=== PATIENT | female | born 1940 | race Two or more races ===

== ENCOUNTER → 2024-05-12 | Outpatient (CLI) | payer MEDICARE, OTHER, SELFPAY ==
--- NOTE | 2024-05-12 13:15 | XR_ITS ---
Examination: Screening digital mammography, bilateral Computer aided detection 3-D breast Tomosynthesis, bilateral Date and time of exam: May 12, 2024 1318 hours Compared to mammograms dating to November 05, 2010 Indication: Screening Technique: Nonmagnified MLO, CC views of the breasts to been obtained, reconstructed from 3-D Tomosynthesis images. R2 computer aided detection program utilized for evaluation of suspicious masses and/or abnormal calcifications. 3-D Tomosynthesis images obtained. Findings: Scattered areas of fibroglandular density. Benign calcifications. No interval suspicious masses Impression: BI-RADS category II: Benign Findings. Recommend 1 year follow-up mammogram.
== END | disposition home or self-care (01) ==
LOC: CDIM 12:58
PROVIDERS: Referring Provider Nurse Practitioner Family; Visit Provider Nurse Practitioner Family
DX: Z12.31 Encounter for screening mammogram for malignant neoplasm of breast (principal); R92.323 Mammographic fibroglandular density, bilateral breasts; R92.1 Mammographic calcification found on diagnostic imaging of breast
CPT/HCPCS: 77063; 77067

== ENCOUNTER → 2024-07-05 | Outpatient (CLI) | payer MEDICARE, OTHER, SELFPAY ==
--- NOTE | 2024-07-05 13:22 | XR_ITS ---
Examination: Right knee 2 views Technique one AP lateral right knee 2 views Exam date and time: July 05, 2024 1352 hours Comparison January 22, 2012 INDICATIONS: Right knee pain beginning one month ago. FINDINGS: Severe osteopenia Moderate narrowing medial joint space Mild osteoarthritis patellofemoral joint No fracture IMPRESSION: Moderate narrowing medial joint space
== END | disposition home or self-care (01) ==
LOC: CDIM 13:12
PROVIDERS: PCP Nurse Practitioner Family; Referring Provider Nurse Practitioner Family; Visit Provider Nurse Practitioner Family
DX: M25.861 Other specified joint disorders, right knee (principal)
CPT/HCPCS: 73560

== ENCOUNTER 2025-04-10 10:27 | Emergency (ER) | payer MEDICARE, OTHER, SELFPAY ==
[2025-04-10 10:39] VITALS: BP 156/78; PULSE 83; RESP 18; TEMP 36.7; O2SAT 100; BMI 19.5
--- NOTE | 2025-04-10 10:52 | PD.EDRME ---
Rapid Medical Screening Exam RME Arrival date/time: 04/10/25 10:27 84-year-old female with a history of hypertension, hyperlipidemia, type 2 diabetes, presents to the emergency room with a chief complaint of generalized weakness and bodyaches x 2 days I have greeted and performed a focused initial assessment of this patient. A comprehensive ED assessment and evaluation of the patient, analysis of all test results, and completion of the medical decision making process will be conducted by additional ED providers. Chief Complaint: General Adult/Misc Complain Time Seen by Provider: 04/10/25 10:39 Vital signs: Vital Signs Temperature 98.1 F 04/10/25 10:39 Pulse Rate 83 04/10/25 10:39 Respiratory Rate 18 04/10/25 10:39 Blood Pressure 156/78 H 04/10/25 10:39 Pulse Oximetry (%) 100 04/10/25 10:39 Oxygen Delivery Method Room Air 04/10/25 10:39 Vital signs reviewed by provider: Yes Exam: Strong and regular rhythm Clear bilateral lung sounds Clinical Impression: Anemia/hypoglycemia/weakness
[2025-04-10 11:43] LABS: Collection Type, Urine Clean Catch; RBC,Urine 0 /hpf (0-3)
[2025-04-10 11:49] LABS: Beta Hydroxybutyrate 0.4 mmol/L (<0.6)
[2025-04-10 11:52] LABS: Basophils # (Auto) 0.1 Thou/mm3 (0.0-0.2); Basophils % (Auto) 1 % (0-2.5); Eosinophils # (Auto) 0.3 Thou/mm3 (0.0-0.5); Eosinophils % (Auto) 3 % (0-10); Hematocrit 35.3 % (36.0-46.0); Hemoglobin 11.7 g/dL (12.0-16.0); Immature Granulocytes Auto 0.03 Thou/mm3 (0.00-0.00); Lymphocytes # (Auto) 2.6 Thou/mm3 (1.0-4.8); Lymphocytes % (Auto) 29 % (10-50); Mean Corpuscular HGB Conc 33.1 g/dl (31.0-37.0); Mean Corpuscular Hemoglobin 30.1 pg (25.0-35.0); Mean Corpuscular Volume 91 fL (80-100); Monocytes # (Auto) 0.4 Thou/mm3 (0.0-0.8); Monocytes % (Auto) 5 % (0-12); Neutrophils # (Auto) 5.5 Thou/mm3 (1.8-7.7); Neutrophils % (Auto) 62 % (37-80); Nucleated Red Blood Cell # 0.00 Thou/mm3 (0.00-0.00); Nucleated Red Blood Cell % 0 /100 WBC (0); Platelet Count 273 Thou/mm3 (140-440); RDW Standard Deviation 43.3 fL (36.4-46.3); Red Blood Count 3.89 Miln/mm3 (4.00-5.20); White Blood Count 8.9 Thou/mm3 (3.6-11.0)
[2025-04-10 11:58] LABS: Bacteria,Urine Rare; Bilirubin,Urine Negative (Negative); Blood,Urine Negative (Negative); Clarity,Urine Turbid (Clear/Hazy); Color,Urine Lt-Yellow (Lt Yel-Yel); Glucose, Urine 4+ (Negative); Ketones,Urine Negative (Negative); Leukocyte Esterase,Urine Positive (Negative); Nitrite,Urine Negative (Negative); PH,Urine 6.0 (5.0-7.0); Protein,Urine Trace (Neg - Trace); Specific Gravity,Urine 1.021 (1.001-1.035); Squamous Epithelial Cell,Urine 2 /hpf (0-5); Urobilinogen,Urine Negative mg/dL (0.0-1.0); WBC,Urine 107 /hpf (0-5)
[2025-04-10 12:04] LABS: Alanine Aminotransferase 43 U/L (10-49); Albumin, Serum 4.5 gm/dL (3.4-4.8); Albumin/Globulin Ratio 1.2 (1.2-2.2); Alkaline Phosphatase 136 U/L (46-116); Anion Gap 10 (7-16); Aspartate Amino Transferase 42 U/L (0-34); BUN/Creatinine Ratio 14 Ratio (12-20); Bilirubin,Total 0.6 mg/dL (0.3-1.2); Blood Urea Nitrogen 17 mg/dL (9-23); Calcium 10.4 mg/dL (8.3-10.6); Calcium (Corrected) 10.4 mg/dL (8.5-10.1); Carbon Dioxide 30.4 mMol/L (20.0-31.0); Chloride 102 mMol/L (98-107); Creatinine (Component) 1.2 mg/dL (0.6-1.3); Estimated Creatinine Clearance 25.9 mL/min (>60); Globulin 3.9 gm/dL (2.3-3.5); Glucose 176 mg/dL (74-106); Lipase 43 U/L (12-53); Osmolality,Calculated 288 (275-295); Potassium 3.7 mMol/L (3.4-5.1); Sodium 142 mMol/L (136-145); Total Protein 8.4 gm/dL (5.7-8.2); eGFR 45 See Note
--- NOTE | 2025-04-10 14:06 | PD.EDADULT ---
ED General RME/HPI General Chief complaint: General Adult/Misc Complain Stated complaint: ACHING MUSCLES, DOESN'T FEEL GOOD Time Seen by Provider: 04/10/25 10:39 Arrival date/time: 04/10/25 10:27 CC: Body aches weakness HPI for 2 days denies fever chills chest pain shortness of breath difficulty breathing is complaining of intermittent nausea denies painful urination or bloody urination. No prior history of similar events. Son-in-law at bedside RME / HPI RME / HPI narrative: 04/10/25 10:27 84-year-old female with a history of hypertension, hyperlipidemia, type 2 diabetes, presents to the emergency room with a chief complaint of generalized weakness and bodyaches x 2 days I have greeted and performed a focused initial assessment of this patient. A comprehensive ED assessment and evaluation of the patient, analysis of all test results, and completion of the medical decision making process will be conducted by additional ED providers. Exam: Strong and regular rhythm Clear bilateral lung sounds Impression: Anemia/hypoglycemia/weakness Related Data Home Medications ?Medication ?Instructions ?Recorded ?Confirmed amlodipine 10 mg tablet (Norvasc) 10 mg PO QDAY 11/23/20 11/23/20 cilostazol 100 mg tablet 100 mg PO QDAY 11/23/20 11/23/20 hydrochlorothiazide 25 mg tablet 25 mg PO QDAY 11/23/20 11/23/20 lisinopril 20 mg tablet 20 mg PO QDAY 11/23/20 11/23/20 metformin 500 mg tablet 500 mg PO BID 11/23/20 11/23/20 Held on 11/23/20. Instructions: Resume on 11/25/20. simvastatin 10 mg tablet 10 mg PO QPM 11/23/20 11/23/20 Previous Rx's ?Medication ?Instructions ?Recorded gabapentin 100 mg capsule 100 mg PO BID #20 caps 08/10/23 cephalexin 500 mg capsule 500 mg PO TID #21 caps 04/10/25 Allergies Allergy/AdvReac Type Severity Reaction Status Date / Time No Known Allergies Allergy Verified 04/10/25 10:30 Review of Systems Review of Systems Narrative Review of Systems: GEN: No fever, no chills, no weight loss EYES: No discharge, no visual changes, no pain HEENT: No ear pain, no congestion, no sore throat PULM: No shortness of breath, no cough, no congestion CV: No chest pain, no dyspnea on exertion, no palpitations GI: No nausea, no vomiting, no diarrhea, no pain, no constipation : No frequency, no urgency, no dysuria MUSC/SKEL: No joint pain, no back pain SKIN: No rash PSYCH: No hallucinations, no depression HEME/LYMPH: No easy bleeding or bruising tendencies NEURO: + weakness, no headache Past Medical History Past Medical History NEUROLOGIC: Negative Neurological Disorders or Seizures CARDIAC: Positive Cardiac Disorders, Hypercholesterolemia, Edema and Hypertension; Negative Congestive Heart Failure RESPIRATORY: Negative Chronic Obstructive Pulmonary Disease (COPD) GASTROINTESTINAL: Negative Gastrointestinal Disorders GENITOURINARY: Negative Genitourinary Disorders or Renal Disease REPRODUCTIVE: Positive Previous Pregnancies MUSCULOSKELETAL: Negative Musculoskeletal Disorders ENDOCRINE: Positive Endocrine Disorders and Diabetes Mellitus Type 2; Negative Diabetes Mellitus Type 1 HEMATOLOGIC: Negative Blood Disorders PSYCHO/SOCIAL: Negative Depression or Anxiety OTHER HISTORY: Negative Hospitalization, Shingles, Falls, Anesthesia Reactions, Chicken Pox, Measles, Mumps or Cancer Surgical History SURGICAL: Positive Hysterectomy; Negative Pacemaker Social History SMOKING STATUS: Never smoker ED Exam Narrative Physical exam: [General: Not in any acute distress Head normocephalic HEENT: Within acceptable limits Neck is supple nontender Chest equal chest rise nontender to palpation Respiratory: Clear to auscultation no wheezes crackles or rubs CV: Rate rhythm is regular grade 2 systolic murmur. 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 Otherwise skin is intact no petechiae rash induration ulceration or crepitus Extremities: Moving all extremity against resistance cap refill less than 2 seconds neurosensory intact Neuro: Awake alert oriented x3 Glascow coma 15 no focal deficits] Course Quality Measures none Orders Category Date Time Status Beta Hydroxybutyrate Stat Lab 04/10/25 11:14 Completed CBC Stat Lab 04/10/25 11:14 Completed CMP [Comprehensive Metabolic Panel] Stat Lab 04/10/25 11:14 Completed Lipase Stat Lab 04/10/25 11:14 Completed UA [Urinalysis] Stat Lab 04/10/25 11:28 Completed Urine Culture Stat Lab 04/10/25 11:28 Received [id number] [Rocephin] 1,000 mg Med 04/10/25 14:19 Discontinued Lidocaine 1% Pf Vial 5ml [Xylocaine 1% Pf 5 ml] 2.1 ml IM X1 Vital Signs Vital signs: Vital Signs Temperature 98.1 F 04/10/25 10:39 Pulse Rate 83 04/10/25 10:39 Respiratory Rate 18 04/10/25 10:39 Blood Pressure 156/78 H 04/10/25 10:39 Pulse Oximetry (%) 100 04/10/25 10:39 Oxygen Delivery Method Room Air 04/10/25 10:39 Discharge Plan Plan Patient Disposition: HOME (Self Care) Patient condition on transfer: Stable Prescriptions/Referrals Prescriptions/Med Rec: New cephalexin 500 mg capsule 500 mg PO TID Qty: 21 0RF No Action metformin 500 mg Tablet 500 mg PO BID cilostazol 100 mg Tablet 100 mg PO QDAY lisinopril 20 mg Tablet 20 mg PO QDAY simvastatin 10 mg Tablet 10 mg PO QPM amlodipine [Norvasc] 10 mg Tablet 10 mg PO QDAY hydrochlorothiazide 25 mg Tablet 25 mg PO QDAY gabapentin 100 mg capsule 100 mg PO BID Qty: 20 0RF Referrals: Farzana Mcintosh, PASTOR [Primary Care Provider] - In 1 week Problem List Clinical Impression: Weakness, UTI (urinary tract infection) Patient/Caregiver Discharge Instructions Education Materials: ED CYSTITIS Female Adult Additional Instructions: Take the medications as prescribed. Follow-up with your primary care doctor if there is worsening of symptoms return the emergency room immediately for further evaluation. Print Language: Tongan Stand Alone Forms: Melissa Award Info., Work/School Release, Patient Portal Info Letter PA/[employer] Supervising Physician PA/[employer] Supervising Physician: Nando Peñaloza ENP [facility] Clinical Information Provided by: patient Medical Records reviewed [facility] Meds/Rx considered, not ordered None Labs/Rad/Tests considered, not ordered None Chronic Illness/Social Conditions Explain: Diabetes EKG EKG not done Labs Labs: interpreted by mn Lab(s) Interpretation(s): CBC shows no acute leukocytosis hemoglobin of 11.7 hematocrit of 35.3. No thrombocytopenia CMP shows no significant electrolyte imbalances other than a glucose of 176. Mild transaminitis with an AST of 42 and alk phos 136 ALT is within acceptable limits T. bili at 0.6. Lipase of 43 Beta hydroxy at 0.4. Urine is turbid 4+ glucose leukocyte esterase +107 WBCs 2 squamous rare bacteria. Imaging Imaging interpretation: none Medication Administration(s) none Medication Administration History Discontinued Medications Ceftriaxone Sodium 1,000 mg/ (Lidocaine HCl 2.1 ml) 0 mg IM X1 ONE Stop: 04/10/25 14:20 Last Admin: 04/10/25 15:09 Dose: 1,000 mg Documented By: TM Diagnosis Diagnoses ruled out and/or further discussions: UTI hyperglycemia DKA
[2025-04-10 14:19] VITALS: BP 153/73; PULSE 87; RESP 18; TEMP 36.7; O2SAT 97
[2025-04-10 15:13] VITALS: BP 153/75; PULSE 96; O2SAT 98
== END 2025-04-10 15:15 | disposition home or self-care (01) ==
PROVIDERS: Nurse Practitioner Family; Emergency Provider Family Medicine; PCP Nurse Practitioner Family
DX: N39.0 Urinary tract infection, site not specified (principal); R53.1 Weakness
CPT/HCPCS: 36415; 80053; 81001; 82010; 83690; 85025; 87077; 87086; 87186; 96372; 99283; J0696; J3490